=== PATIENT | female | born 1960 | race Caucasian/White ===

== ENCOUNTER 2022-01-04 14:08 | Emergency (ER) | payer MEDICAID, SELFPAY ==
[2022-01-04 14:12] VITALS: BP 179/99; PULSE 102; RESP 18; TEMP 36.8; O2SAT 99
--- NOTE | 2022-01-04 14:36 | ED.GENADUL_ITS ---
Discharge Plan Disposition Patient Disposition: HOME Condition: Improving Discharge Details Chief Complaint: DentalOral Clinical Impression: Dental infection ED Provider: Patrick Bethea Discharge Instructions Instructions: Dental Abscess (ED) Additional Instructions: Please followup with dental appointment. Return to the emergency department for worsening swelling pain redness fevers chills change in voice or inability to swallow. Return to the emergency department if antibiotics are not working. Continue with ibuprofen and acetaminophen at home for pain and swelling. Medical Decision Making 61-year-old female denies chest medical history presents with several days of worsening left upper molar pain facial swelling, swelling to maxillary and zygomatic soft tissue, induration of gingiva next to chronically decayed left upper posterior molar, tolerating secretions normal voice. Likely dental infection dental abscess versus early facial cellulitis, no evidence of Anju's angina or orbital involvement. Analgesia, local anesthesia trial of bedside needle aspiration will likely have patient continue on oral antibiotic she is working on appointment at [facility]. Will give home care instructions and return precautions. Performed periapical block left posterior upper molar, attempted needle aspiration with 18-gauge needle, no purulent material expressed. Patient feeling much better after medications administered. Will continue with oral antibiotics at home given strict return precautions for no improvement or worsening symptoms. Is working on a dental appointment in [place]. HPI General Date/Time Provider Initiated Documentation: 01/04/22 14:33 . HPI Narrative: 61-year-old female presents with several days of left upper molar pain, worsening pain and swelling over the last day. Denies fevers chills nausea or vomiting. General Stated Complaint: DentalOral OTILIO: 4 Review of Systems Narrative: Review of Systems Constitutional: negative Eyes: negative ENT: Facial swelling dental pain Cardiovascular: negative Respiratory: negative Gastrointestinal: negative : negative Musculoskeletal: negative Skin: negative Neurologic: negative Psych: negative PFSH All Active Problems (Updated 01/04/22 @ 15:18 by Patrick Bethea MD) Dental infection (Acute) Social History Smoking/Tobacco Use Status: Current every day Tobacco Type: cigarettes Smoking risk assessment performed?: Yes Alcohol Intake: never Drug use: Never Substance use type: does not use Do you feel safe at home: Yes Do you feel safe in your relationship?: Yes Exam Narrative Exam Narrative: Physical Examination General: alert, awake, cooperative, resting comfortably, no acute distress HEENT: Swelling and induration to left maxillary and zygomatic soft tissue, chronically appearing decayed left upper posterior molar with induration of gingiva; normal voice tolerating secretions no mandibular involvement no neck involvement. PERRL, EOM intact, conjunctiva normal; no nasal discharge; moist mucous membranes, tolerating secretions Neck: supple, trachea midline; full ROM Chest: normal to inspection Respiratory: normal respiratory effort, speaking in full sentences, clear to auscultation, no wheezing, rales or rhonchi Cardiac: regular rate, regular rhythm, S1S2 intact, no murmurs rubs or gallops GI: abdomen soft, non-tender, non-distended; no palpable mass or hepatosplenomegaly Skin: no lesions, rashes or trauma appreciated Neuro: AAOx3, normal speech, moving all extremities Extremities: Psych: Appropriate mood and affect Course Vital Signs Vital signs: Vital Signs Temperature 36.8 C 01/04/22 14:12 Pulse 102 H 01/04/22 14:12 Respiratory Rate 18 01/04/22 14:12 Blood Pressure 179/99 H 01/04/22 14:12 Pulse Oximetry 99 01/04/22 14:12 Temperature 36.8 C 01/04/22 14:12 Temperature Source Tympanic 01/04/22 14:12 Pulse 102 H 01/04/22 14:12 Respiratory Rate 18 01/04/22 14:12 Respiratory Effort 01/04/22 14:15 Blood Pressure 179/99 H 01/04/22 14:12 Blood Pressure Position Supine 01/04/22 14:12 Pulse Oximetry 99 01/04/22 14:12 Oxygen Delivery Method Room Air 01/04/22 14:12 Oxygen Flow Rate 0 01/04/22 14:12 Pain Level 9 01/04/22 14:12
[2022-01-04] MEDS: Lidocaine 1% Multi-Dose 20 ML VIAL 10 ML IJ (14:44)
[2022-01-04] MEDS: oxyCODONE 5 mg/Acetaminophen 325 mg TAB 1 TAB PO (14:44)
[2022-01-04] MEDS: Amoxicillin 875/Clav. 125 TAB PO (14:44)
[2022-01-04] MEDS: Ondansetron O.D.T. 4 MG TABEF SL (14:44)
--- NOTE | 2022-01-06 09:37 | W.ED.FU ---
Follow Up Plan: Electronic antibiotic prescription was not transmitted at time of discharge. I have called the prescription in over the phone to [facility] in [place] phone number [phone], for Augmentin 875?125mg 1 tab p.o. twice daily for 10 days. 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 She endorses that she does have persistent pain however the swelling has gone down. Given strict return precautions for worsening symptomatology
== END 2022-01-04 15:22 | disposition home or self-care (01) ==
LOC: ER 15:31
PROVIDERS: Emergency Provider Emergency Medicine
DX: K04.7 Periapical abscess without sinus (principal); K12.2 Cellulitis and abscess of mouth
CPT/HCPCS: 10160; J3490

== ENCOUNTER 2022-03-10 11:13 | Emergency (ER) | payer MEDICAID, SELFPAY ==
[2022-03-10 11:19] VITALS: BP 186/110; PULSE 105; RESP 16; TEMP 36.2; O2SAT 95
--- NOTE | 2022-03-10 11:29 | ED.GENADUL_ITS ---
Discharge Plan Disposition Patient Disposition: HOME Condition: Improving Discharge Details Chief Complaint: GenMedical Clinical Impression: Situational hypertension Primary Care Provider: None,None ED Provider: Aldo Juarez Home Meds and New Rx's Prescriptions: No Action No Known Home Meds Discharge Instructions Additional Instructions: Please see enclosed information regarding the Dash diet. Seek out and read ingredient labels to promote more a low salt options in your diet. Our care management will work to obtain an outpatient follow-up referral for you to establish primary care. Return to the emergency department for any acute concerns. Medical Decision Making 61-year-old female referred after free procedure screening at dentistry office revealed blood pressure elevated at approximately 190/130. The procedure was canceled and the patient was asked to seek urgent care. She does not have a [facility] physician and therefore presents to the ER today. Patient states to me she had nightmares all week regarding her fear of dentistry. She woke up quite anxious. By the time of my evaluating the patient in the room her blood pressure improved to 170/110. Discussed with her implementation of a low-salt diet, trialing some components of the Dash diet, and follow-up to establish primary care. She previously was given a benzodiazepine for perioperative anxiolysis before her next extraction. She is stable and appropriate to discharge at this time. No further work-up indicated in my opinion at this time HPI General Mode of arrival: ambulatory . Date/Time Provider Initiated Documentation: 03/10/22 11:15 . Limitations to Documentation: no limitations . Information obtained by: patient . History of Present Illness 61 year old F presents to the emergency department with the chief complaint of High blood pressure at dentistry office, no complaints, Patient started experiencing this unknown No relieving factors improve symptom(s), No exacerbating factors reported . Patient notes no other symptoms.; denies chest pain, headaches, shortness of breath and syncope. Patient did receive the following treatments prior to arrival, none Related Data Home Medications Medication Instructions Recorded Confirmed Unknown [No Known Home Meds] 03/10/22 03/10/22 Allergies Allergy/AdvReac Type Severity Reaction Status Date / Time diphenhydramine Allergy Unverified 03/10/22 11:25 [From Benadryl] General Stated Complaint: GenMedical OTILIO: 3 Review of Systems Narrative: Seeing dentistry for extractions. No recent illness. 6 systems reviewed and otherwise negative PFSH All Active Problems (Updated 03/10/22 @ 11:43 by Aldo Juarez MD) Situational hypertension (Acute) Social History Smoking/Tobacco Use Status: Current every day Tobacco Type: cigarettes Smoking risk assessment performed?: Yes Alcohol Intake: never Drug use: Never Substance use type: does not use Do you feel safe at home: Yes Do you feel safe in your relationship?: Yes Exam Narrative Exam Narrative: GEN: awake, alert, oriented 3. Pleasant, well groomed, interactive. HEAD: Normocephalic, atraumatic ENT: Mucous membranes moist, oropharynx with poor dentition and missing teeth, no swelling or tenderness External ear exam unremarkable EYES: PERRL, EOMI NECK: Full ROM, no ESTHER, no menigismus CHEST/RESP: Nontender, clear to auscultation bilateral, no wheeze/rhonchi/rales CARDIOVASCULAR: RRR, no murmur, rub carla. 2+ Rad pulse bilateral ABDOMEN: Soft, nontender, no mass. +Bowel sounds EXT: Full ROM, no edema, no rash Neuro: Grossly normal neurologic exam, conversant, interactive. Psych: Speech fluent, thoughts congruent, affect normal Course Vital Signs Vital signs: Vital Signs Temperature 36.2 C L 03/10/22 11:19 Pulse 105 H 03/10/22 11:19 Respiratory Rate 16 03/10/22 11:19 Blood Pressure 186/110 H 03/10/22 11:19 Pulse Oximetry 95 03/10/22 11:19 Temperature 36.2 C L 03/10/22 11:19 Temperature Source Temporal Artery Scan 03/10/22 11:19 Pulse 105 H 03/10/22 11:19 Respiratory Rate 16 03/10/22 11:19 Respiratory Effort 03/10/22 11:19 Blood Pressure 186/110 H 03/10/22 11:19 Blood Pressure Position Sitting 03/10/22 11:19 Pulse Oximetry 95 03/10/22 11:19 Oxygen Delivery Method Room Air 03/10/22 11:19 Oxygen Flow Rate 0 03/10/22 11:19 Pain Level 0 03/10/22 11:19
[2022-03-10 11:32] VITALS: RESP 17
--- NOTE | 2022-03-10 11:42 | NUR.NOTE ---
Nursing Note: Pt info given to care management to establish care & to be seen to recheck BP. [place], ED
[2022-03-10 11:55] VITALS: BP 177/123; PULSE 102; RESP 18; TEMP 36.6; O2SAT 98
--- NOTE | 2022-03-15 15:13 | PDOC.ERCMACT ---
- If Service Date Differs Date of service: 03/15/22 Time of Service: 15:13 Care Management Activity Note Janette is seen in the ED for high blood pressure. At the request of ED provider, CM coordinates a referral to [facility] in [place], [place], to assist Janette in obtaining a follow up appointment and in establishing care with a PCP. Janette has Medicaid for insurance.
== END 2022-03-10 11:54 | disposition home or self-care (01) ==
PROVIDERS: Emergency Provider Emergency Medicine
DX: I10 Essential (primary) hypertension (principal)
CPT/HCPCS: 99281; 99282